=== PATIENT | male | born 1965 | race Caucasian/White ===

== ENCOUNTER 2021-10-16 10:33 | Emergency (ER) | payer OTHER ==
[~2021-10-16] VITALS: Ht 170.2 cm; Wt 73.0 kg
[2021-10-16] MEDS ORDERED: LIDOCAINE HCL/PF 1% 10 MG/ML 5ML VIAL INFIL ONE (11:00)
[2021-10-16] MEDS ORDERED: BACITRACIN ZINC OINT UDPKT TOP ONE (11:00)
[2021-10-16] MEDS ORDERED: TETANUS, DIPHTHERIA, PERTUSSIS VAC/PF 0.5ML (>10YR OLD) IM ONE (11:15)
[2021-10-16] MEDS ORDERED: LIDOCAINE HCL 1% 10 MG/ML 10ML VIAL INJ ONE (11:40)
[2021-10-16] MEDS ORDERED: CEPHALEXIN 250MG CAPSULE PO ONE (13:00)
[2021-10-16] MEDS ORDERED: HYDR-4001 PO ×3 (13:15→13:30)
[2021-10-16] MEDS ORDERED: CEPH500C2 PO ×3 (13:15→13:30)
[2021-10-16 13:37] VITALS: BP 128/45
== END 2021-10-16 13:39 | disposition home or self-care (01) ==
LOC: ER 10:43
DX: S62.600A Fracture of unspecified phalanx of right index finger, initial encounter for closed fracture (principal); W22.8XXA Striking against or struck by other objects, initial encounter; Y93.89 Activity, other specified; Y92.89 Other specified places as the place of occurrence of the external cause; Y99.8 Other external cause status; I10 Essential (primary) hypertension; Z90.49 Acquired absence of other specified parts of digestive tract
CPT/HCPCS: 12001; 73140; 90471; 90715; 99283; J3490